=== PATIENT | female | born 1955 | race Hispanic/Latino ===

== ENCOUNTER 2019-09-23 07:01 | Emergency (ER) | payer OTHER ==
[~2019-09-23 07:01] MED LIST: ASPI-1012 PO; HYDR-4457 PO; HYDR12.530 PO; LOSA50TA64 PO; PRAV20TA4 PO
[2019-09-23] MEDS ORDERED: KETOROLAC TROMETHAMINE 30MG/ML ONE (07:25)
[2019-09-23] MEDS ORDERED: DIAZEPAM 5 MG TABLET ONE (07:26)
== END 2019-09-23 08:36 | disposition home or self-care (01) ==
LOC: EDH 07:01
DX: M19.021 Primary osteoarthritis, right elbow (principal); I10 Essential (primary) hypertension; E78.00 Pure hypercholesterolemia, unspecified; Z90.49 Acquired absence of other specified parts of digestive tract; Z90.710 Acquired absence of both cervix and uterus; Z88.0 Allergy status to penicillin
CPT/HCPCS: 96372; 99283; J1885

== ENCOUNTER 2020-01-16 05:41 | Observation (INO) | payer OTHER ==
[2020-01-13 09:12] VITALS: BP 116/72; PULSE 68; RESP 18
[2020-01-16] VITALS (24 sets, daily range): BP systolic 118–148; BP diastolic 47–85; PULSE 56–89; RESP 12–18; TEMP 96.6–98.3
[~2020-01-16] VITALS: Ht 160 cm; Wt 84.2 kg
[2020-01-16] MEDS: CLINDAMYCIN 900 MG/D5% WATER 50 ML IV SCH (06:00)
[2020-01-16] MEDS ORDERED: SCOPOLAMINE HYDROBROMIDE 1 EACH ADH..PATCH TD ONE (07:23)
[2020-01-16] MEDS ORDERED: LACTATED RINGERS 1000ML 1,000 ML IV ONE (07:23)
[2020-01-16] MEDS ORDERED: PROPOFOL 10 MG/ML 20ML VIAL IV ONE (07:33)
[2020-01-16] MEDS ORDERED: SUCCINYLCHOLINE CHLORIDE 20 MG/ML 10 ML VIAL ONE (07:33)
[2020-01-16] MEDS ORDERED: ROCURONIUM 10MG/1ML SYR 10 MG/ML ML ONE (07:34)
[2020-01-16] MEDS ORDERED: LIDOCAINE PF 2% 5ML ABBOJECT ONE (07:34)
[2020-01-16] MEDS ORDERED: MIDAZOLAM HCL 1 MG/ML 2ML VIAL ONE (07:34)
[2020-01-16] MEDS ORDERED: TRANEXAMIC ACID 1000MG/10ML ONE ×2 (08:26→12:07)
[2020-01-16] MEDS ORDERED: CLINDAMYCIN PHOSPHATE 150 MG/ML 6ML VIAL ONE (08:26)
[2020-01-16] MEDS ORDERED: CEFAZOLIN SODIUM 1 GM VIAL ONE ×2 (08:54→09:07)
[2020-01-16] MEDS ORDERED: FENTANYL CITRATE PF 50 MCG/1 ML 2ML VIAL ONE ×2 (09:26→10:20)
[2020-01-16] MEDS ORDERED: ONDANSETRON HCL 4 MG/2 ML VIAL ONE (09:44)
[2020-01-16] MEDS ORDERED: DEXAMETHASONE SOD PHOSPHATE 4 MG/ML 1ML VIAL ONE (09:44)
[2020-01-16] MEDS ORDERED: GLYCOPYRROLATE 1 MG/5 ML SYRINGE ONE (09:53)
[2020-01-16] MEDS ORDERED: NEOSTIGMINE 5MG/5ML SYR IV ONE (09:53)
[2020-01-16] MEDS ORDERED: EPHEDRINE SULFATE 50 MG/ML AMPULE ONE (09:54)
[2020-01-16] MEDS ORDERED: CEFAZOLIN SODIUM 1 GM VIAL IRRIG ONE (09:58)
[2020-01-16] MEDS: SODIUM CHLORIDE 0.9% 1000ML 1,000 ML IV SCH ×2 (11:24→22:07)
[2020-01-16] MEDS ORDERED: POTASSIUM CHLORIDE 10% ELIXIR 20 MEQ/15 ML UDCUP PO PRN (11:30)
[2020-01-16] MEDS ORDERED: POTASSIUM CHLORIDE 20MEQ/100ML 100 ML IV PRN (11:30)
[2020-01-16] MEDS ORDERED: OXYCODONE HCL 5 MG TAB PO PRN (11:30)
[2020-01-16] MEDS ORDERED: ONDANSETRON HCL 4 MG/2 ML VIAL IVP PRN (11:30)
[2020-01-16] MEDS ORDERED: TRAMADOL HCL 50 MG TABLET PO PRN (11:30)
[2020-01-16] MEDS ORDERED: DiphenhydrAMINE HCL 50 MG/ML VIAL IVP PRN (11:30)
[2020-01-16] MEDS ORDERED: FERROUS FUMARATE 324 MG TABLET PO PRN (11:30)
[2020-01-16] MEDS ORDERED: LIDOCAINE HCL-MPF 1% 2ML VIAL IV PRN (11:30)
[2020-01-16] MEDS ORDERED: POTASSIUM CHLORIDE 20 MEQ ERTAB PO PRN (11:30)
[2020-01-16] MEDS ORDERED: CALCIUM CARBONATE 500 MG TABLET PO PRN (11:30)
[2020-01-16] MEDS ORDERED: TEMAZEPAM 15 MG CAPSULE PO PRN (11:30)
[2020-01-16] MEDS: ACETAMINOPHEN EXTRA STRENGTH 500 MG TABLET PO SCH ×2 (11:30→20:13)
[2020-01-16] MEDS ORDERED: MEPERIDINE-PF 25 MG/ML SYG ONE (12:21)
[2020-01-16] MEDS: KETOROLAC TROMETHAMINE 15MG/ML IV PRN ×3 (12:25→20:14)
--- NOTE | 2020-01-16 16:09 | NUR ---
MET W PATIENT /DAUGHTER AT BEDSIDE S/P TKA HAS HAD TKA BEFORE, HAS ALL EQUIPMENT- [facility] AND 3 IN CHAIR, LIVES WITH SPOUSE, 2 STAIRS OUTSIDE HOME DAUGHTER [employer] GARC[employer] TO PROVIDE RIDE HOME Addendum: 01/17/20 at 1613 by RADHA BURLESON RN CM Amended: Links added.
[2020-01-16] MEDS: CEFAZOLIN SODIUM 1 GM VIAL IVP SCH (16:42)
[2020-01-16] MEDS: OXYCODONE HCL 5 MG TAB PO PRN (19:10)
[2020-01-16] MEDS: PREGABALIN 25 MG CAP PO SCH (20:12)
[2020-01-16] MEDS: CELECOXIB 200 MG CAP PO SCH (20:12)
[2020-01-16] MEDS: FAMOTIDINE 20MG TAB 20 MG TAB PO SCH (20:12)
[2020-01-16] MEDS: ASPIRIN 81MG TAB.CHEW PO SCH (20:12)
[2020-01-16] MEDS ORDERED: HYDROMORPHONE HCL 2 MG/ML VIAL IVP PRN (20:45)
[2020-01-16] MEDS ORDERED: SIMVASTATIN 10 MG TABLET PO SCH (21:00)
[2020-01-16] MEDS: HYDROMORPHONE 1 MG/1 ML AMP IVP PRN ×2 (21:05→23:00)
[2020-01-17] MEDS: CEFAZOLIN SODIUM 1 GM VIAL IVP SCH (00:17)
[2020-01-17] MEDS: OXYCODONE HCL 5 MG TAB PO PRN ×3 (00:37→13:49)
[2020-01-17] MEDS: HYDROMORPHONE 1 MG/1 ML AMP IVP PRN ×3 (01:11→05:30)
[2020-01-17] MEDS: ACETAMINOPHEN EXTRA STRENGTH 500 MG TABLET PO SCH ×2 (03:00→12:01)
[2020-01-17 03:28] VITALS: BP 113/71; PULSE 77; RESP 18; TEMP 97.8
[2020-01-17] MEDS: CLINDAMYCIN 900 MG/D5% WATER 50 ML IV SCH (05:29)
[2020-01-17] MEDS: SODIUM CHLORIDE 0.9% 1000ML 1,000 ML IV SCH (06:35)
[2020-01-17 08:12] VITALS: BP 130/64; PULSE 85; RESP 19; TEMP 97.5
[2020-01-17] MEDS: PREGABALIN 25 MG CAP PO SCH (08:43)
[2020-01-17] MEDS: FAMOTIDINE 20MG TAB 20 MG TAB PO SCH (08:44)
[2020-01-17] MEDS: CELECOXIB 200 MG CAP PO SCH (08:44)
[2020-01-17] MEDS: ASPIRIN 81MG TAB.CHEW PO SCH (08:44)
[2020-01-17] MEDS ORDERED: POLYETHYLENE GLYCOL 3350 17 GM POWD.PACK PO SCH (09:00)
[2020-01-17] MEDS ORDERED: HYDROCHLOROTHIAZIDE 25 MG TABLET PO SCH (09:00)
[2020-01-17] MEDS ORDERED: LOSARTAN 50 MG TABLET PO SCH (09:00)
[2020-01-17 12:43] VITALS: BP 107/65; PULSE 90; RESP 19; TEMP 97.3
--- NOTE | 2020-01-17 15:58 | NUR ---
DC TODAY WITH HOME HEALTH Addendum: 01/17/20 at 1601 by RADHA BURLESON RN CM Amended: Links added.
[2020-01-17 16:22] VITALS: BP 116/65; PULSE 76; RESP 19; TEMP 97.7
--- NOTE | 2020-01-17 16:46 | NUR ---
DISCHARGE PATIENT GIVEN DISCHARGE INSTRUCTIONS AND EDUCATION ON FOLLOW UP APPOINTMENTS, NEW RX (ASA/NORCO), PT(WBAT), [facility] AND D/C 01/23/20, S/S TO REPORT. PATIENT VERBALIZED UNDERSTANDING OF ALL EDUCATION GIVEN VIA TEACH BACK. REFERENCE MATERIAL PROVIDED. IV DISCONTINUED, CATHETER INTACT. [facility] DRESSING CHANGED PRIOR TO D/C PER DR SPARKS ORDERS. SMALL BLISTERS NOTED AT THE EDGE OF THE WHITE PART OF THE DRESSING. DR SPARKS INFORMED, PICTURE SEND TO DR SPARKS WITH PATIENT'S APPROVAL. DR SPARKS GAVE ORDERS TO PUNCTURE THE BLISTERS WITH A 20G NEEDLE, CLEAN DRAIN WITH STERILE GAUZE, AND CLEANSE AGAIN WITH HYDROGEN PEROXIDE. PATIENT TOLERATED WELL. [facility] DRESSING APPLIED. SEAL INTACT. NEGATIVE PRESSURE ACTIVE.
--- NOTE | 2020-01-17 17:17 | NUR ---
[facility] ANSWERING SERVICE CALLED. WAITING FOR CALL BACK.
--- NOTE | 2020-01-17 17:36 | NUR ---
REPORT [facility] CALLED BACK. REPORT GIVEN TO JACOB BROWN RN. RN AWARE OF PT NEW RX, F/U APPOINTMENT, [facility] AND D/C ON 01/23/20, PAIN CONTROL, PT(WBAT), S/S TO REPORT. NO CONCERNS VOICED.
[2020-01-19] MEDS ORDERED: BISACODYL 10 MG SUPP.RECT RC PRN (11:30)
== END 2020-01-17 18:55 | disposition home health service (06) ==
LOC: DAH 05:41 → DAHIP 05:42 → 3BH 14:17
PROVIDERS: ADMIT Orthopaedic Surgery; ATTEND Orthopaedic Surgery
DX: M17.12 Unilateral primary osteoarthritis, left knee (principal); M23.8X2 Other internal derangements of left knee
CPT/HCPCS: 27447; 36415 ×2; 80048 ×2; 81003; 85025; 85027; 85610; 87641; 96372 ×2; 96374; 96375; 97039 ×3; 97116 ×2; 97161; 97530 ×2; A4215; A4221; A4222; A4223; A4649 ×3; A4663; A4930 ×2; A9272; C1776; G0378 ×20; G8979; G8980; G8981; G8982; G8983; J0330; J0690 ×5; J1100; J1170 ×5; J1885 ×2; J2001; J2175; J2250; J2405; J2704; J2710; J3010 ×2; J3490 ×6; J7120 ×2; U0003

== ENCOUNTER → 2023-02-16 | Outpatient (CLI) | payer OTHER ==
[~2023-02-16] MED LIST changes: +ASPI-1005 PO; -ASPI-1012 PO; -LOSA50TA64 PO; +TELM40TA8 PO
== END | disposition home or self-care (01) ==
LOC: RAH 14:42
PROVIDERS: ATTEND Internal Medicine
DX: M19.011 Primary osteoarthritis, right shoulder (principal); M25.511 Pain in right shoulder
CPT/HCPCS: 73221

== ENCOUNTER → 2025-04-06 | Outpatient (CLI) | payer OTHER ==
[~2025-04-06] MED LIST changes: -PRAV20TA4 PO; +PRAV20TA59 PO
--- NOTE | 2025-04-07 09:27 | HMCIMG ---
EXAM: CT Cardiac calcium scoring. CLINICAL HISTORY: CAD screening. TECHNIQUE: Thin collimated axial CT cardiac images were obtained. A CT scan is done according to ALARA (As Low As Reasonably Achievable). CONTRAST: None. COMPARISON: None provided. FINDINGS: Calcium Score: VESSEL Number of lesions Volume mm3 Equi. Mass/mg Calcium score LM 0 00.00 00.00 00.00 LAD 0 00.00 00.00 00.00 LCX 0 00.00 00.00 00.00 RCA 0 00.00 00.00 00.00 Total 0 00.00 00.00 00.00 IMPRESSION: The calcium score is 0. This places the patient below 0th percentile in comparison to a group of patients asymptomatic for coronary artery disease with the same age and gender. This means that 0 % of females aged 70-74 have a calcium score that is lower than the patient's. /Samira
== END | disposition home or self-care (01) ==
LOC: RAH 13:36
PROVIDERS: ATTEND Internal Medicine
DX: Z13.6 Encounter for screening for cardiovascular disorders (principal); I25.10 Atherosclerotic heart disease of native coronary artery without angina pectoris
CPT/HCPCS: 75571